=== PATIENT | female | born 1950 | race Caucasian/White ===

== ENCOUNTER 2025-09-16 08:25 | Outpatient (OUT) | payer MEDICARE, OTHER, SELFPAY ==
--- OUTSIDE RECORDS SUMMARY | 2014-10-12 09:45 | XMS_ITS | Continuity of Care Document ---
Author Organization [facility] Address [address] [place] [address] Phone Care Team Providers Care Experimental Welder Name Role Phone Rip Liriano Unavailable Unavailable Procedures Procedure Date ZOSTER VACC, SC OFFICE/OUTPATIENT VISIT, EST IMMUNIZATION ADMIN ZOSTER VACC, [place] HEP A/HEP B VACC, ADULT IM OFFICE/OUTPATIENT VISIT, EST OFFICE/OUTPATIENT VISIT, EST HEP A/HEP B VACC, ADULT IM OFFICE/OUTPATIENT VISIT, EST HEP A/HEP B VACC, ADULT IM OFFICE/OUTPATIENT VISIT, EST TDAP VACCINE >7 IM HEP A/HEP B VACC, ADULT IM Advance Directives Directive Yes / No Effective Date File Name Resuscitation Not Answered N/A N/A Life Support Not Answered N/A N/A Intubation Not Answered N/A N/A Antibiotics Not Answered N/A N/A IV Fluid Support Not Answered N/A N/A Tube Feed Not Answered N/A N/A Other Directive N/A N/A WARNING:The information contained in this section is historical and is provided for information only and does not constitute a legal document or any assurance that the information is still accurate. Please verify the information with the sy of the legal document before using it for clinical purposes. Encounters Encounter Description Practice Location Reason(s) For Visit Diagnoses Date Provider Providers Copied on Encounter OFFICE/OUTPAT IENT VISIT, EST [facility], [address] [place] [address], [id number], [place] tel:[phone] [facility] Need for prophylactic vaccination and inoculation, other viral diseases 4 Viscmelania Momin. [address], [place], [id number] , [place]. tel: [phone] OFFICE/OUTPAT IENT VISIT, [facility], [address], [place], [id number], [place] tel:[phone] [facility] No Information 1 Viscmelania Momin. [address], [place], [id number] , [place]. tel:[phone] OFFICE/OUTPAT IENT VISIT, [facility], [address], [place], [id number], [place] tel:[phone] [facility] No Information 1 Visci DO Erwin. [address], [place], [id number] , [place]. tel:[phone] OFFICE/OUTPAT IENT VISIT, [facility], [address], [place], [id number], [place] tel:[phone] [facility] No Information 1 Malissa Momin. [address], [place], [id number] , [place]. tel:[phone] Family History Family Member Type Diagnosis Age At Onset No Information Immunizations Vaccine Date Status Comments Zoster administered Note: VIS given . ; Source: New Immunization Record Twinrix administered Source: New Imm unization Record Payers Payer name Insurance type Covered libertarian ID Rosaura arias(s) [facility] [id number] Social History Type Description Quantity Date Captured Comments Alcohol Use Details Unknown Caffeine Use Details Unknown Tobacco Use Status No Information Smoking Status No Information Sex Female Chief Complaint And Reason For Visit No Information Reason For Referral Reason For Referral No Information History Of Present Illness Encounter Date Complaint History Of Prese nt Illness No Information Functional Status Date Functional Assessmen t No Information Instructions Date Instruction Additional Infor mation No Information Assessments Type Assessment Date No Information Patient Care Teams Name Effective Dates (start - stop) Status Members No Information
--- OUTSIDE RECORDS SUMMARY | 2025-09-14 20:02 | XMS_ITS | Continuity of Care Document ---
Author Organization [facility] Address [address] [place] [address] Phone Care Team Providers Care Learning Developer Name Role Phone Selwyn Johnson DO Primary Care Provider Marciano Eldridge MD Attending Provider Care Teams Patient Care Team Team Status: Active Member Role/Relationship Status Dates Selwyn Johnson DO Primary Care Provider Active Visit Care Team Team Status: Inactive Member Role/Relationship Status Dates Selwyn Johnson DO Primary Care Provider Active S tart: June 22, 2025 End: June 22Sabrina Calhoun ProviderActiveStart: June 22, 2025 End: June 22, 2025 Visit Care Team Team Status: Inactive Member Role/Relationship Status Dates Selwyn Johnson DO Primary Care Provider Active S tart: July 18, 2025 End: July 18Sabrina Calhoun ProviderActiveStart: July 18, 2025 End: July 18, 2025 Visit Care Team Team Status: Active Member Role/Relationship Status Dates Selwyn Johnson DO Primary Care Provider Active S tart: August 10, 2025 Sabrina Forde ProviderActiveStart: August 10, 2025 Visit Care Team Team Status: Inactive Member Role/Relationship Status Dates Selwyn Johnson DO Primary Care Provider Active S tart: August 29, 2025 End: August 29Sabrina Calhoun ProviderActiveStart: August 29, 2025 End: August 29, 2025 Patient Care Team Team Status: Inactive Member Role/Relationship Status Dates Selwyn Johnson DO Primary Care Provider Active S tart: September 14, 2025 End: September 14, 2025ThgInacio Calhounending ProviderActiveStart: September 14, 2025 End: September 14, 2025 Chief Complaint and Reason for Visit Chief Complaint Admit Date M47.816 M54.16 June 22, 2025 11:5 4am MRI RESULTS [facility] July 18, 2025 9: 26am F/U LUMBAR EPIDURAL August 29, 2025 9: 00am RIGHT INTRA-ARTICULAR HIP JOINT INJECT ION /VW September 14, 2025 11:49am Reason for Visit Admit Date Arthritis, lumbar spine July 18 9:26am Osteoarthritis of spine with radiculopat hy, lumbar region July 18, 2025 9:26am Other chronic pain July 18, 2025 9: 26am Arthritis, lumbar spine August 29 9:00am Hip pain, right August 29, 2025 9: 00am Osteoarthritis of spine with radiculopat hy, lumbar region August 29, 2025 9:00am Other chronic pain August 29, 2025 9: 00am Allergies, Adverse Reactions, Alerts Allergen Type Severity Reaction Last Updated Verified Status codeine Allergy Unknown Vomiting August 29, 9:33am Yes Active seasonal Allergy Moderate Watery Eyes, sneezing Mar 2023 11:07am No Active narcotic Allergy Unknown Vomiting May 11 8:07am No Active Social History Smoking Status Status Start Date End Date Date of Observa tion Never smoked tobacco (finding) February 18, 2024 11:15am Observation Status Observation Response Date of Response Legal Sex Female (finding) [facility] Family History Relationship Condition Age at Onset Recorded Date/T shayla father Parkinson's disease Unknown motherCardiovascular diseaseUnknownDiabetes mellitusUnknownfatherDeceasedUnknown HypertensionUnknownfatherHypertensionUnknowngrandparentDeceasedUnknown grandparentDeceasedUnknowngrandparentDeceasedUnknowngrandparentDeceasedUnknown motherHeart diseaseUnknownHypertensionUnknownDeceasedUnknownDiabetes mellitus Unknown Problems Active Problems Problem Diagnosis/Recorded Date Onset Date Status C omments Arthritis, lumbar spine Radha 2024 11:11am Unknown Active Popping of left temporomandibular joint on opening of jawFebruary 2024 12:16pmUnknownActiveHx of partial nephrectomyMarch 2023 11:34amUnknown Activeleft partial nephrectomy 02/06/2023Screen for colon cancerSeptember 2019 7:51amUnknownActiveMorbid (severe) obesity due to excess caloriesJune 2024 12:04pmUnknownActiveOther shelter (current) drug therapyMarch 2023 11:23amUnknownActiveGreater trochanteric bursitis of right hipJuly 2023 9:51amUnknownActiveLumbar radiculopathyJuly 2024 11:14amUnknownActiveLow back painJuly 2024 10:56amUnknownActiveAcute sinusitisFebruary 2024 12:18pmUnknownActivePolyarthralgiaMarch 2023 11:23amUnknownActive DiverticulosisDecember 2020 8:08amUnknownActiveHistory of total left knee replacementJune 2024 3:14pmUnknownActiveEdemaJune 2024 12:06pmUnknown ActiveOsteoarthritis of spine with radiculopathy, lumbar regionAugust 2024 9:51amUnknownActiveHyperglycemiaMarch 2023 11:23amUnknownActive HyperlipidemiaAugust 2021 12:09pmUnknownActiveHistory of kidney cancerJune 2024 8:48amUnknownActiveTick biteJune 2024 12:13pmUnknownActiveOther chronic painJuly 2024 11:14amUnknownActiveWeight gainFebruary 2024 12:20pmUnknownActiveWeight lossMarch 2023 11:23amUnknownActiveHip pain, rightJuly 2023 1:42pmUnknownActiveGERD (gastroesophageal reflux disease) August 08, 2020 7:51amUnknownActiveAllergic rhinitisSeptember 2023 10:14amUnknownActiveHypertensionSeptember 2019 7:51amUnknownActive Diverticulitis of colonJune 2020 9:11amUnknownActiveInactive/Resolved Problems Problem Diagnosis/Recorded Date Onset Date Status C omments Antibiotic reaction April 29, 2025 12:13pm Unknown Reso lved Medications Medication Status Dose Units Route Directions Qty Days Refills S tart Date Stop Date End Date Reason(s) Instructions Adherence Amoxicillin-Pot Clavulanate 875-125 mg tablet Discontinued 1 TAB PO Twice daily 20 10 0 March 01, 2024 12:00am March 01, 2024 4:39pmwith foodAmoxicillin-Pot Clavulanate 875-125 mg tablet Jzridiupvxbm6FZPQJTfcpl tmaqc79042Vuihb 2023 4:38pmMay 2023 1:29pm with foodOmeprazole 20 mg capsule,delayed release(DR/EC)Spefrkpjbxrg02NVPSDjtqq 14203Hxvuw 2023 3:52pmJune 2024 11:12amFreeTextSi capsule 30 minutes before morning meal Orally Once a day; Note: Source Status: Taking; Provider: Jeevan Radford MDicyclomine 20 mg aerxywTfzmruowtuoa59WZFNNgub times fkyln403126Fiqz 3rd, 2024 12:00amNovember 2023 10:30amDoxycycline Hyclate 100 mg ghypktgOumznyaskboj287UBLKUcydx uqksp91101WscApril 11, 2025 12:00amMay 2024 9:58amDoxycycline Hyclate 100 mg rrickbuJuhwygxctizc266SKEEXsqmd zzqhz38075 April 11, 2025 9:58amJune 2024 11:52amMultivitamin IdzizgWxpixx3GHMOFZkrrs August 08, 2020 12:00amUnknownAtorvastatin 10 mg XjdskbEwqtcoandhej25MHHE DailySeptember 2019 12:00amMarch , 2024 11:08amMetoprolol Succinate 100 mg Tablet Extended Release 24 GsJxasaozuwgid239WHRIEeraz dailypt2019 12:2023 3:08pmAmlodipine 10 mg KbtxleOsgywo05BXBJ DailyAugust 08, 2020 12:00amUnknownIndapamide 1.25 mg TabletDiscontinued 1.25MGPOEvery morningAugust 08, 2020 12:[facility]2023 3:07pmRamipril 10 mg WyrsjawSvedfu84PDIWOlkzp dailypt2019 12:00amUnknownCoenzyme Q10 (Coq-10) 100 mg MdjojpfVvuudrgsdgvv004TBOSQuzyuAffbqlnro 15th, 2020 12:00am July 01, 2022 11:38amAmoxicillin-Pot Clavulanate (Augmentin) 875-125 mg ubfvvjSebezanjjflo7QQRHKScetb zzrhi828Lvkxjnki 13th, 2021 1:2021 4:14pmOndansetron Hcl (Zofran) 4 mg ojikgoMztdzorkrxio1OBJTegkdw 6 to 8 hours as needed for nausea and hwumihst485Lnhcdhlc 13th, 2021 1:2021 4:13pmOmeprazole 40 mg Capsule,Delayed Release(Dr/Ec)Gfypxqwflitx13VS PODailyJun 2020 12:[facility] 2023 3:13pmMetronidazole (Flagyl) 500 mg XtgxkhExtzpaiuondi421BKUUZsswg times xwkdr681FckgMay 22, 2021 12:2021 4:14pmCiprofloxacin Hcl 500 mg ClegpgDuymbmkyqour752QQCALpbss daily20 2020 12:2021 4:14pmAdminister dose at least 2 hrs before/6 hrs after dairy products, calcium, zinc, and/or iron-containing productsCholecalciferol (Vitamin D3) (Vitamin D3) 25 mcg (1,000 unit) Tablet Lmsietppgfaa00ZMUZD7 times per weekAupresbyterian medical center-[facility] 2021 12:00amJun2024 11:55amAcetaminophen (Tylenol Arthritis) 650 mg Tablet Extended Release Wfozoormbwhs5780KKRFLmxcg as needed for PainAugust 2021 12:00amMarch 2023 11:08amCholecalciferol (Vitamin D3) (Vitamin D3) 25 mcg (1,000 unit) tablet Alxpqc79QPHAFQyndfQsmh 6th, 2025 11:52amUnknownculturelleDiscontinuedPOMay 2023 12:00amJun2024 11:52amHyoscyamine Sulfate 0.125 mg tablet,disintegratingDiscontinued0.125MGPOFour times daily as needed for ryafdufww838545Cxq 24th, 2024 12:00amJun2023 10:18amDicyclomine 20 mg ekzqsvGljnczdsxgpm17JHJCCluw times daily as neededOctober 11, 2024 10:28am January 04, 2025 12:11pmMethylprednisolone (Medrol (Bryan)) 4 mg tablets,dose fqrsJetzeqfffqqd4MZWGvr jguycrkg54FvyrannSeptember 07, 2024 12:00amNovember 2023 10:29amPrednisone 20 mg izevwkJaghuyblkpel0PG.with food or zpnd6228Yntfyxou2024 1:002024 9:07amtake 3 tablets a day x3 days, 2 tabs a day x3 days and then 1 tab a day x3 days orally WITH FOOD ORMILK;Cefdinir 300 mg mhxgiifEvdjuezrjuic2VMHycha59017Lnscorhp 11th, 2025 1:002024 9:07am take 2 (300 MG) capsules orally daily;Rosuvastatin 5 mg cemkvbHjvcdn1SLXGTepcn April 29, 2025 12:00amUnknownIndapamide 1.25 mg tabletDiscontinuedMGPOMarch 2023 12:002024 11:55amFreeTextSi-2 tablets in the morning Orally Once a day; Note: Source Status: Taking; Provider: Syd Rogers Metoprolol Succinate 100 mg tablet extended release 24 ruRuelvjpmsvfo1KPKMHJitaq dailyPremier Health 2023 12:00amNovember 2023 10:30amFreeTextSi tablet Oral Twice a day; Note: Source Status: Taking; Provider: Shayan Evangelista II ( )Metoprolol Succinate 50 mg tablet extended release 24 hr Trkvyhkwbckg82BYKALnkcx dailyPremier Health 2023 12:00amNovemb2023 10:29am FreeTextSi tablet Orally bid; Note: Source Status: Taking; Provider: Shayan Evangelista II ( )Omeprazole 20 mg capsule,delayed release(DR/EC) Bckcyyeqtfte5VNEXWHukmnDwkkp 2023 12:00amApril 2023 3:53pm FreeTextSi capsule 30 minutes before morning meal Orally Once a day; Note: Source Status: Taking; Provider: Jeevan Radford MAcetaminophen 500 mg tablet Kforvg139NHXRZpjfi 8 hours as neededPremier Health 2023 12:00amFreeTextSi tablets for pain Orally every 8 hrs; Note: Source Status: Takingmed to bed upon discharge DOS: 07/15/22; Refills: 0; Qty: 180 Tablet; Provider: Shayan Headleyroxychloroquine (Plaquenil) 200 mg sgtykgPzmtih030ICSQYzgyv February 18, 2024 12:00amUnknownMetoprolol Succinate 100 mg tablet extended release 24 dbVjuvgr093GQSZSsnxq dailyUofl [facility] 2023 10:29amFreeTextSi tablet Oral Twice a day; Note: Source Status: Taking; Provider: Shayan Evangelista II ( )UnknownIndapamide 1.25 mg tabletActive1.25MGPO.COMPLEXJune 2024 11:53am1.25 mg orally 1-2 tablets in the morning Orally Once a day; UnknownOmeprazole 20 mg capsule,delayed release(DR/EC)Sckhil67LRKBOvjye41639Ijqj 2024 11:11amFreeTextSi capsule 30 minutes before morning meal Orally Once a day; Note: Source Status: Taking; Provider: Jeevan Dean Immunizations Immunization Event Date Not Given Reason Dose Number Bed Laster Lot Number Reason(s) Given Vaccine Information Statement (VIS) Detail Administration Location COVID-19 mRNA, Comirnaty (Pfizer) January 24 COVID-19 mRNA, Comirnaty (Pfizer)February 14OVID-19 mRNA, Comirnaty (Upmann's)September 15OVID-19 mRNA, Comirnaty (Pfizer)April 04OVID- Comirnaty (Upmann's) Tri-Sucrose +April 04, 2022Fluzone TIV High-Dose 65YR+ August 28, 2018Fluzone TIV High-Dose 65YR+August 24, 2024Fluzone QIV High- Dose 65YR+August 22, 2020Fluzone QIV High-Dose 65YR+August 28, 2021 Fluzone QIV High-Dose 65YR+October 27, 2022Influenza vaccine, quadrivalent, adjuvantedSeptember neumococcal Conjugate Vaccine, 13 valentOctober 2016Pneumococcal Polysacc. Vaccine, 23 valentOctober 2017RSV, preF3, adj, pfOctober 2022Zoster Vaccine Recombinant, AdjuvantedAugust 2022 Zoster Vaccine Recombinant, AdjuvantedDecember 2022Tetanus, Diphtheria, Pertussis (Tdap)December 06, 2010Trivalent Influenza VaccineOctober 2017 Trivalent Influenza VaccineDecember 2021Hepatitis A & B Vaccine/PFJanuary 2010Hepatitis A & B Vaccine/PFFebruary 2010Hepatitis A & B Vaccine/PFJuly 2010Shingles (Zoster)October 12, 2014 Medical Equipment Device Date Implanted Device Details Orthopaedic cement, non-medicated July 15, 2 022 HILDA: [id number] Issuing Agency: [facility] Device Id: [id number] Expiration Date: 2024-08-23 Lot Number: [id number] cement, non-medicatedAugust 2021UDI: ()[id number] Issuing Agency: [facility] Device Id: [id number] Expiration Date: 2024-08-23 Lot Number: [id number] knee femur prosthesisAugust 2021UDI: ()[id number] Issuing Agency: [facility] Device Id: [id number] Expiration Date: 2032-02-11 Lot Number: [id number] insertAugust 2021UDI: ()[id number] Issuing Agency: [facility] Device Id: [id number] Expiration Date: 2027-09-23 Lot Number: [id number] patella prosthesisAugust 2021UDI: ()[id number] Issuing Agency: [facility] Device Id: [id number] Expiration Date: 2027-06-10 Lot Number: [id number] stemAugust 2021UDI: ()[id number] Issuing Agency: [facility] Device Id: [id number] Expiration Date: 2032-05-01 Lot Number: [id number] knee tibia prosthesis, metallicAugust 2021 HILDA: ()[id number] Issuing Agency: [facility] Device Id: [id number] Expiration Date: 2032-03-02 Lot Number: [id number] Procedures Procedure Date Performed Status MR lumbar spine wo con June 22, 2025 11:56am c ompleted Relevant Diagnostic Tests and/or Laboratory Data Diagnostic Imaging Reports Author Salo Brush [facility] HospitalAuthoredJuly 2024 3:02pmReportDictated Date/TimeDictated ByStatusRadiology ReportJuly 2024 3:02pmZhang CrowderKettering [facility] [place] [address] [place] [address] MRI Report Signed Patient: Beatrice Yung MR#: [id number] : 1950 Acct:[id number] Age/Sex: 74 / F ADM Date: 5 [facility] CLI Attending Dr: Marciano Eldridge MD Copies to: Marciano Eldridge MD~ Ordering Provider: Marciano Eldridge MD Date of Service: 06/22/25 MR/MR lumbar spine wo con: M47.816 - Spondylosis without myelopathy or radiculopathy... MRI lumbar spine performed without contrast INDICATION: Lumbar spine pain years radiates into the right hip/groin spondylosis without myelopathy or radiculopathy COMPARISON: X-rays lumbar spine 06/06/2025 FINDINGS: Mild dextrocurvature. There is 4 mm anterolisthesis of 4 on L5. Otherwise lumbar vertebral heights, alignment is unremarkable. There are degenerative endplate changes notably L5-S1 and less so L4-5. Intervertebral space space narrowing greatest at L5-S1, appearing mild to moderate and mild L4-5. Facet arthropathy greatest L4-5 and less so L5-S1. Conus medullaris terminates normally mid L1. T11-12: Right foraminal zone nerve root sheath diverticulum. Otherwise no significant disease central canal or neural foramen identified. T12-L1: Minor desiccation. Facet arthropathy. Canal neural foraminal pain. L1-2: Minimal right foraminal zone bulge with facet arthropathy. No significant canal neural foraminal narrowing identified. L2-3: Minimal endplate osteophytosis. No focal protrusion. Facet arthropathy. Minimal foraminal narrowing. Canal is patent. L3-4: Minimal broad-based bulge with endplate osteophytosis. Minimal foraminal encroachment. Tcve-bl-ouieslqf facet arthropathy. Central canal is patent. L4-5: Circumferential disc bulge with uncovering the posterior disc. There is a superimposed right foraminal and extraforaminal zone protrusion. Advanced facet arthropathy. Moderate right neural foraminal narrowing and icaq-ct-fehlttkl left neural foraminal narrowing identified. There is moderate severe central canal stenosis. L5-S1: Circumferential bulge with moderate right moderate severe left-sided facet arthropathy. Mild right neural foraminal narrowing. There is moderate left neural foraminal narrowing. There is crowding left subarticular zone with minimal mass effect on the traversing left S1 nerve roots. Otherwise canal is patent. MR/MR lumbar spine wo con IMPRESSION: Overall moderate degenerative changes lower lumbar spine L4-S1. No high-grade canal or neural foraminal narrowing identified. Moderate severe central stenosis at L4-5 noted. Impression dictated by: Salo Brush M.D. 06/22/2025 3:14 PM Dictation Location: [facility]-- Transcribed By: [facility] 06/22/25 1514 Dictated By: Salo Brush MD 06/22/25 1502 Signed By: <Electronically signed by Salo Brush MD in OV> 06/22/25 1514 Advance Directives Advance Directive Response Recorded Date/ Time Advance Directives No July 24, 2017 7:23am Insurance Providers Guarantor Beatrice Yung Address [address] [facility] [address] Info.Home Phone: Coverage Status Update:2025 Payer Group Member ID Coverage Type Subscriber Relationship to Subscriber Effective Date Expiration Date MMO [id number] K [place] Id: [id number] [address] [facility] [address] Home Phone: Email: [email or web address] General Hospitalcare Id: Irena [id number] K [place] Id: [id number] [address] [facility] [address] Home Phone: Email: [email or web address] Encounters Encounter Location(s) Arrival/Admit Date Discharge/Departure Date Discharge/Departure Disposition Provider(s) Departed Clinical -[facility] [address] Closed June 22, 2025 11:54am June 22, 2025 11:55am Discharged to home care or self care (routine discharge) Kyler Forde MD Departed Physician/ Provider Office Visit -[facility] July 18, 2025 9:26am July 18, 2025 9:52am Discharged to home care or self care (routine discharge) Kyler Forde MD Non-patient / Non-visit -[facility] August 10, 2025 12:30pm Kyler Forde MDDeparted Physician/Provider [facility] 9:00amOctober 2024 9:54amDischarged to home care or self care (routine discharge)Kyler Forde MDDeparted Physician/Provider [facility] 11:49amOctober 2024 11:59pmDischarged to home care or self care (routine discharge)Kyler Forde MD Recent Diagnosis Onset Date Admit Date Arthritis, lumbar spine Unknown June 252024 9:26am Osteoarthritis of spine with radiculopathy, lumbar region Unknown July 18, 2025 9:26am Other chronic pain Unknown July 18, 2025 9:26am Arthritis, lumbar spine Unknown August 29, 2025 9:00am Hip pain, right Unknown August 29 9:00am Osteoarthritis of spine with radiculopathy, lumbar region Unknown August 29, 2025 9:00am Other chronic pain Unknown August 29, 2025 9:00am Assessments Diagnosis Onset Date Resolution Status Admit Date Arthritis, lumbar spine acuteAugust 2024 9:26amOsteoarthritis of spine with radiculopathy, lumbar regionacuteAugust 2024 9:26amOther chronic painacuteAugust 2024 9:26amArthritis, lumbar spineacuteOctober 2024 9:00amHip pain, rightacute August 29, 2025 9:00amOsteoarthritis of spine with radiculopathy, lumbar regionacuteOctober 2024 9:00amOther chronic painacuteOctober 2024 9:00am Plan of Treatment [facility] 9:52amShould the patients lumbar pain persist following the epidural, we can consider the facet joints as a contributing factor of her pain. She was provided with educational literature for further consideration. Patients primary complaint today is low lumbar pain radiating into the lateral aspect of her bilateral lower extremities. Recent MRI results show evidence of multilevel degenerative changes and moderate spinal stenosis at L4-5, possibly contributing to her symptoms. We discussed a referral to neurosurgery vs conservative treatment; patient would like to proceed conservatively. She is a reasonable candidate for a lumbar epidural steroid injection which we will proceed with. Risks and benefits of procedure explained to patient; patient verbalizes understanding. Anatomy of spine discussed in detail with patient in regards to patients condition. Above note written by Sebastián Corrales CMA, [employer]. Edited and approved by Dr. Marciano Eldridge MD.? Author Marciano Eldridge [facility] HospitalAuthoredOctober 2024 10:09amPatient notes considerable improvement in their symptoms following a recent lumbar epidural steroid injection. We will continue to monitor and proceed with repeat treatment to the area as needed. She was advised of the importance of activity modification and limitations. We will follow up with the patient in three months, sooner if needed. Anatomy of spine discussed in detail with patient in regards to patients condition. Overall, patient believes their pain is reasonably well controlled and she is in agreement with our treatment plan. Patient does complain of anterior hip and groin pain. We did discuss a repeat hip joint injection as this helped considerably in the past. Patient would like to hold off at this time. Patient can call office if she would like to proceed with a repeat hip injection. Above note written by GHULAM Spears, [employer]. Edited and approved by Dr. Marciano Eldridge MD.? Future Tests Future scheduled test information is unavailable Pending Tests Pending diagnostic test information is unavailable Future Visits Future appointment information is unavailable Future Procedures Future procedure information is unavailable Future Medications Future medication information is unavailable Patient Instructions Patient instructions are unavailable
--- OUTSIDE RECORDS SUMMARY | 2025-09-16 08:33 | XMS_ITS | Clinical Summary ---
Author Organization [facility] Address [address] [place] [address] Care Team Providers Care Speed Operator Name Role Phone Selwyn Johnson DO Primary Care Provider [phone] Luis Alfredo Jones MD Unavailable [phone] Allergies Active AllergyReactionsCriticalityNoted DateCommentsCodeineGI Upset,Unknown 02/16/2004Sulfa (Sulfonamide Antibiotics)09/05/2004 muscle and joint aches Medications MedicationSigDispense QuantityRefillsLast FilledStart DateEnd DateStatus MULTIVITAMIN TABLET Take one(1) tablet daily.Active LOZOL 1.25MG TABLET Indications:Essential hypertension, benignqam 30 111Active metoprolol succinate ER (TOPROL XL) 100 mg Take 150 mg by mouth twice daily.Active amLODIPine 10 mg ORAL tablet Take 10 mg by mouth once daily.Active ramipril (ALTACE) 10 mg capsule Take 10 mg by mouth twice daily.Active omeprazole (PRILOSEC) 40 mg capsule Take by mouth once daily.Active PAIN RELIEVER EXTRA STRENGTH 500 mg tablet TAKE TWO TABLETS BY MOUTH EVERY 8 HOURS FOR PAIN07/09/2022ctive atorvastatin (LIPITOR) 10 mg tablet Take by mouth.12/17/2021ctive oxyCODONE IR (ROXICODONE) 5 mg immediate release tablet Indications:Left renal massTake 1 tablet by mouth every 8 hours as needed for pain. 8 tablet 02/05/2023 12:30 PM EDT02/05/2023ctive ondansetron orally disintegrating (ZOFRAN ODT) 4 mg disintegrating tablet Take 1 tablet by mouth every 8 hours as needed. 20 tablet 02/05/2023 12:30 PM EDT02/05/2023ctive hydrOXYchloroQUINE (PLAQUENIL) 200 mg tablet Take 200 mg by mouth.10/02/2023ctive Active Problems ProblemNoted DateDiagnosed DateSevere ybyywyz9401/26/20240318Nfatdpyplzwmji84/29/2024 Obesity, Class II, BMI 35-39.9002/04/2023Obesity (BMI 30-39.9)01/28/2023 Assessment & Plan (01/28/2023 7:38 AM EST): Body mass index is 38.06 kg/m??. GERD (gastroesophageal reflux disease)01/27/2023 Assessment & Plan (01/27/2023 1:33 PM EST): Pepe, on rx. Fatty liver01/27/2023 Assessment & Plan (01/27/2023 1:33 PM EST): Follows with gastroenterology. CMP pending. Recent URI01/27/2023 Assessment & Plan (01/27/2023 1:35 PM EST): Had recent URI, completed 10 day course of Augmentin on 01/25. Had symptoms of cough and nasal congestion, no fevers. States symptoms have improved, has occasional cough from PND. Lungs CTA on exam, SpO2 97% on room air. Lung CT without focal consolidations. Left renal mass12/03/2022Microscopic buuweoghg51/10/2023lantar fasciitis 08/19/2012Morton's prbcbew1708/19/2012Pain in limb08/19/2012Essential hypertension, krzrpf9810/29/2004 Assessment & Plan (01/27/2023 1:03 PM EST): Stable, on rx. BP 146/75 in office today. Family History Medical HistoryRelationCommentsDiabetesFatherCoronary Artery DiseaseMother DiabetesMotherAnesthesia ProblemsNo Family HistoryRelationStatusCommentsFather Mother Social History Tobacco UseTypesPacks/DayYears UsedDateSmoking Tobacco: NeverPassive Smoke Exposure: NeverSmokeless Tobacco: Never Tobacco Cessation:Counseling Given: Not Answered Alcohol UseStandard Drinks/WeekCommentsNot Currently0 (1 standard drink = 0.6 oz pure alcohol)rare- once every couple of monthsArea Deprivation IndexAnswerDate RecordedNational Score (1-100), lower number is lower aksc70854State Score (1-10), lower number is lower ergv4514Data from: https://www.neighborhoodatlas.medicine.[facility]/. Last address used for [address]CommentsNoSex and Gender Information ValueDate RecordedSex Assigned at BirthNot on fileLegal IlnUwxgug74/02/2012 8:50 AM ESTGender IdentityNot on fileSexual OrientationNot on file Last Filed Vital Signs Vital SignReadingTime TakenCommentsBlood Brtkwzmv164/8503 11:29 AM EST Siobl3347 11:29 AM FCWVlyftgnokff53.8 ??C (98.2 ??F)02/05/2023 11:10 AM EDTRespiratory Wndx368502/05/2023 9:11 AM EDTOxygen Xnctkjifpv21%02/05/2023 11:10 AM EDTInhaled Oxygen Concentration--Mxufql101 kg (236 lb)02/14/2023 9:02 AM EDT Ovsemz534.2 cm (5' 7 )02/14/2023 9:02 AM EDTBody Mass Index36.9602/14/2023 9:02 AM EDT Plan of Treatment DateTypeDepartmentCare Team (Latest Contact Info)Lmektpfgdwo52/19/2026 8:00 AM EDTResults Only [employer] [facility] Draw Station [address] [place] [address] (D) Renal cell carcinoma, unspecified laterality (HCC) [C64.9]05/12/2026 8:15 AM EDTAppointment General Radiology [address] [place], [place] [id number] XR CHEST 2V FRONTAL/FSB132 8:[address] Scan [address] [place] [address] CT ABD/PEL W IVCON05/12/2026 9:[address] Scan [address] [place], [place] [id number] CT ABD/PEL W IVCON05/17/2026 10:00 AM EDT[facility] [address] [address] Janny Landrum MD [facility] [place] [address] 1 year vv - RCC per cc chartHealth MaintenanceDue DateLast DoneCommentsAnnual PCP Team Chronic Disease Visit1969Anxiety Oqfbhkvub74/01/1969Depression Aojyljjzm78/01/1969Hepatitis C Yzykjhrzx06/01/1969CT Ldtpyqaiwttb57/01/1996 Cologuard (FIT-DNA)06/24/19961153Oatiilslmdj84/01/1996Colorectal Cancer Screening 1996Fecal Occult Blood06/24/19966798Zthrqtbkjyafm39/01/1996Medicare Annual Wellness Visit05/24/2016DTaP,Tdap,Td Vaccine (2 - Td or Tdap)12/06/2020 12/06/2010dvance Directive Xznwwabmxo81/01/2025Covid-19 Vaccine ( season)505/10/2022, 09/15/2021, 02/14/2021, Additional history exists Influenza Vaccine (#1)/11/2023, 08/21/2023, 10/27/2022, Additional history existsMammogram Rnmygtdsj35/07/784225/05/2024, 04/02/2024, 12/30/2022, Additional history existsDiabetes Nktivrvoe09/04/2025, 05/31/2024, 01/22/2024, Additional history existsLipid Ykqvlltvl55/06/2024 Pneumococcal Vaccine: 50+Bglleydsf39/05/2018, 09/08/2017Bone Density Screening Cxmwrsvlk98/16/2019RSV DvwjhjiOiszrilju35/23/2023Shingrix VaccineCompleted 11/14/2023, 07/22/2023, 10/12/2014 Medical Devices ImplantedTypeAreaManufacturerDevice IdentifierSwilson health Expiration DateModel / Serial / LotGraft Bn Grftn Dbm 1ml Ptty - [id number] Implanted:Qty: 1 on 05/15/2012 at [facility] / PuttyLeft: Bone - Foot MTF01/[id number] / [id number] / Nut-Mo-B-Kind Implant - [id number] Implanted:Qty: 1 on 05/15/2012 at [facility]: Bone - FootSTRYKER [id number] / / Description:variax xutovQyq-Ef-F-Kind Implant - [id number] Implanted:Qty: 1 on 05/15/2012 at [facility]: Bone - FootSTRYKER [id number] / / Description:3.5mm locking screw cxqmyiHom-No-U-Kind Implant - [id number] Implanted:Qty: 1 on 05/15/2012 at [facility]: Bone - FootSTRYKER [id number] / / Description:3.5mm locking screw kbzcoiRnb-Yt-Z-Kind Implant - [id number] Implanted:Qty: 1 on 05/15/2012 at [facility]: Bone - FootSTRYKER [id number] / / Description:3.5mm locking screw fazcpxGyh-Sf-D-Kind Implant - [id number] Implanted:Qty: 1 on 05/15/2012 at [facility]: Bone - FootSTRYKER [id number] / / Description:3.5mm locking screw sihhqrZfq-Sz-L-Kind Implant - [id number] Implanted:Qty: 1 on 05/15/2012 at [facility]: Bone - [facility] BONE [id number] / / ExplantedTypeAreaManufacturerDevice IdentifierSwilson health Expiration DateModel / Serial / RokZew-Hh-J-Kind Implant - [id number] [facility] Bone - FootLAZARO BONE [id number] / / Description:shahzad 1.0szg079al Procedures Procedure NamePriorityDate/TimeAssociated DiagnosisCommentsBASIC METABOLIC PANEL Pdxuuud9501/27/2025 8:41 AM EST Malignant neoplasm of left kidney excluding renal pelvis (HCC) from Last 3 Months or Most Recently Relevant to Health Maintenance Results * (ABNORMAL) BASIC METABOLIC PNL (01/27/2025 8:41 AM EST)ComponentValueRef Range Test MethodAnalysis TimePerformed AtPathologist KbnbflcfoIdexmgh821(H)74 - 99 mg/dL01/27/2025 9:12 AM ESTCANCER CENTER [facility] LABComment: The [place] Diabetes Association (ADA) provides guidance for cutoff values for fasting glucose andrandom glucose. The ADA defines fasting as no caloric intake for at least 8 hours. Fasting plasma glucose results between 100 to 125 mg/dL indicate increased risk for diabetes (prediabetes). Fasting plasma glucose results greater than or equal to 126 mg/dL meet the criteria for diagnosis of diabetes. In the absence of unequivocal hyperglycemia, results should be confirmed by repeat testing. In a patient with classic symptoms of hyperglycemia or hyperglycemic crisis, random plasma glucose results greater than or equal to 200 mg/dL meet the criteria for diagnosis of diabetes. Reference: Standards of Medical Care in Diabetes 2016, [place] Diabetes Association. Diabetes Care. 2016.39(Suppl 1). OPO613 - 21 mg/dL01/27/2025 9:12 AM ESTCANC[facility] LABCreatinine0.79 0.58 - 0.96 mg/dL01/27/2025 9:12 AM [address] AAZGcpztk300(H)136 - 144 mmol/L01/27/2025 9:12 AM [address] LABPotassium4.53.7 - 5.1 mmol/L01/27/2025 9:12 AM [address] KJLQmloxtgv55231 - 107 mmol/L 01/27/2025 9:12 AM [address] MTMGE93764 - 30 mmol/L01/27/2025 9:12 AM [address] LABAnion Oot990 - 15 mmol/L01/27/2025 9:12 AM [address] LABCalcium, Total9.88.5 - 10.2 mg/dL01/27/2025 9:12 AM ESTCANC[facility] LABEstimated Glomerular Filtration Rate79>=60 mL/min/1.73m 01/27/2025 9:12 AM ESTCANC[facility] LABComment:Estimated Glomerular Filtration Rate (eGFR) is calculated using the 2020 CKD-EPI creatinine equation. This equation utilizes serum creatinine, sex, and age as parameters. The creatinine assay has traceable calibration to isotope dilution-mass spectrometry. Refer to KDIGO guidelines for clinical interpretation. In patients with unstable renal function, e.g. those with acute kidney injury, the eGFRmay not accurately reflect actual GFR.Specimen (Source)Anatomical Location / LateralityCollection Method / VolumeCollection TimeReceived TimeBloodBLOOD SPECIMEN / UnknownVenipuncture / Iwrstqk1501/27/2025 8:41 AM EST01/27/2025 8:41 AM EST Narrative Authorizing ProviderResult TypeResult StatusBartolo Rios MDLABORATORYFinal Result Performing OrganizationAddressCity/State/ZIP CodePhone Number [facility] [address] [place] [address], from Last 3 Months or Most Recently Relevant to Health Maintenance Insurance Advance Directives TypeDate RecordedPatient RepresentativeExplanationAdvance Directive(s)02/03/2023 10:07 AM Care Teams Team MemberRelationshipSpecialtyStart DateEnd Date Selwyn Johnson DO [address] [place] [phone] PCP - General02/08/04 Luis Alfredo Jones MD [address] [phone] Cardiology01/27/23
--- OUTSIDE RECORDS SUMMARY | 2025-09-16 08:34 | XMS_ITS | Patient Health Record ---
Author Organization [facility] Address [facility] [place] [address] Care Team Providers Care Dining Room Coordinator Name Role Phone Benny Lane Unavailable [phone] Reason For Referral No Information Plan Of Treatment No Information Insurance Providers Payer Name Payer Address Payer Phone Subscriber Number Group Number Insured Name Patient Relationship to Insured Coverage Start Date Coverage End Date Medical [facility] [address] [place] [address] [id number] Beatrice Yung Self - patient is the insured Medical [facility] [address] [place] [id number] Yungouse - patient is the spouse of the insured
--- OUTSIDE RECORDS SUMMARY | 2025-09-16 08:34 | XMS_ITS | Clinical Summary ---
Author Organization [facility] Address [address] [place] [address] Phone Care Team Providers Care Records Section Supervisor Name Role Phone Selwyn Johnsno DO Primary Care Provider [phone] Allergies Active AllergyReactionsCriticalityNoted DateCommentsCodeineUnknown,Nausea Only 02/16/20042428BjhwalklfdkfXrvkklk47/14/2025Sulfa (Sulfonamide Antibiotics)Unknown 01/06/2024 Medications MedicationSigDispense QuantityRefillsLast FilledStart DateEnd DateStatus multivitamin tablet Take 1 tablet by mouth once daily.Active omeprazole OTC (PriLOSEC OTC) 20 mg EC tablet Take 1 tablet (20 mg) by mouth once daily in the morning. Take before meals. Do not crush, chew, orsplit.Active hydroxychloroquine (Plaquenil) 200 mg tablet Take 1 tablet (200 mg) by mouth once daily.4Active ramipril (Altace) 10 mg capsule Indications:Essential hypertension, benignTake 1 capsule (10 mg) by mouth every 12 hours. 180 capsule 5Active amLODIPine (Norvasc) 10 mg tablet Indications:Essential hypertension, benignTake 1 tablet (10 mg) by mouth once daily. 90 tablet 5Active indapamide (Lozol) 1.25 mg tablet Indications:Essential hypertension, benignTake 1 tablet (1.25 mg) by mouth once daily. 90 tablet 5Active metoprolol succinate XL (Toprol-XL) 100 mg 24 hr tablet Indications:Essential hypertension, benignTAKE 1 AND 1/2 TABLETS TWICE DAILY 270 tablet 5Active rosuvastatin (Crestor) 5 mg tablet Indications:Mixed hyperlipidemiaTake 1 tablet (5 mg) by mouth once daily. 90 tablet 506Active Active Problems ProblemNoted DateDiagnosed DateNever smoked iaijrih7306/06/2025Localized edema 06/06/2025MI 39.0-39.9,adult06/04/20242256Ucdfdstfjw02/13/2024Hyperlipidemia 01/06/2024White coat syndrome with diagnosis of exhjdcmsibkc25/13/2024Essential (primary) vfzevmkvmzbb32/06/2004 Overview (01/06/2024): Last Assessment & Plan: Stable, on rx. BP 146/75 in office today. Immunizations ImmunizationAdministration DatesNext DueFlu vaccine, quadrivalent, high-dose, preservative free, age 65y+ (FLUZONE)10/27/2022,08/28/2021,08/22/2020Flu vaccine, trivalent, preservative free, HIGH-DOSE, age 65y+ (Fluzone)08/24/2024, 08/22/2020,08/28/2018,08/25/2017Hep A / Hep B006/13/2011,01/17/2011,12/06/2010 Influenza, Seasonal, Quadrivalent, Cuthetnygx95/28/2023Influenza, seasonal, jqnomrbvcf04/04/2022,08/24/2019,08/28/2018Pfizer Argueta Cap YYII-EsO-008/12/2022 Pfizer Purple Cap PLGK-HjO-575/12/2022Pneumococcal conjugate vaccine, 13-valent (PREVNAR 13)09/08/2017Pneumococcal polysaccharide vaccine, 23-valent, age 2 years and older (PNEUMOVAX 23)08/28/2018RSV, 60 Years And Older (AREXVY) 09/15/2023Zoster vaccine, recombinant, adult (SHINGRIX)11/14/2023,07/22/2023 Zoster, live10/12/2014 Family History Medical HistoryRelationNameCommentsHypertensionFatherHeart failureMother HypertensionMotherRelationNameStatusCommentsFatherMother Social History Tobacco UseTypesPacks/DayYears UsedDateSmoking Tobacco: NeverSmokeless Tobacco: NeverAlcohol UseStandard Drinks/WeekCommentsYes0 (1 standard drink = 0.6 oz pure alcohol)rarelyCommentsUnknownSex and Gender InformationValueDate RecordedSex Assigned at BirthNot on fileLegal AsxDszsho71/25/2022 6:30 PM EST Gender IdentityNot on fileSexual OrientationNot on file Last Filed Vital Signs Vital SignReadingTime TakenCommentsBlood Mnoxbwaz545/8007 8:57 AM EDT Mikjb848906/06/2025 8:36 AM EDTTemperature--Respiratory Rate--Oxygen Saturation-- Inhaled Oxygen Concentration--Xjgbta426 kg (255 lb)06/06/2025 8:36 AM EDTHeight 170.2 cm (5' 7 )06/06/2025 8:36 AM EDTBody Mass Index39.9406/06/2025 8:36 AM EDT Plan of Treatment DateTypeDepartmentCare Team (Latest Contact Info)Ykwyonelnnb43/17/2026 8:40 AM EDTOffice Visit [facility] [address] [facility] [address] [place] [address] Luis Alfredo Jones MD [address] [facility] [address], [address] [place] [address] Health MaintenanceDue DateLast DoneCommentsCT Drruzvfjemwr1951Colonoscopy 1951olorectal Cancer Tpozipryt1951FIT-DNA (Cologuard)1951FIT 1951ipid Panel06/24/19513151Ovxtgjywnwhqk1951Yearly Adult Physical 1951Hepatitis C Diujvrvuc65/01/1969DTaP/Tdap/Td Vaccines (1 - Tdap) 1973MMR Vaccines (1 of 1 - Standard series)11/09/2014one Density Scan /Influenza Vaccine (#1)/11/2023, 08/21/2023, 10/27/2022, Additional history existsCOVID-19 Vaccine ( season) 505/10/2022, 04/04/20223364Txpyzlbdp73/07/202511/05/2024, 09/30/2024, 04/15/2024, Additional history existsHepatitis A GpbjponvGwwxpcevq94/21/2011, 01/17/2011, 12/06/2010Hepatitis B EygrmkjkKbloqjawh97/21/2011, 01/17/2011, 12/06/2010Pneumococcal AdlptjlMhvwqnlkz92/05/2018, 09/08/2017RSV High Risk: (Elderly (60+) or Population)Wkkxztmoq99/23/2023Zoster Vaccines Jfakviwzk79/22/2023, 07/22/2023, 10/12/2014HIB VaccinesAged OutNo longer eligible based on patient's age to complete this topicHPV VaccinesAged OutNo longer eligible based on patient's age to complete this topicIPV VaccinesAged OutNo longer eligible based on patient's age to complete this topicMeningococcal VaccineAged OutNo longer eligible based on patient's age to complete this topic Rotavirus VaccinesAged OutNo longer eligible based on patient's age to complete this topic Insurance [address] [place] [address] Care Teams Team MemberRelationshipSpecialtyStart DateEnd Date Selwyn Johnson DO [facility]03/14/22
--- OUTSIDE RECORDS SUMMARY | 2025-09-16 08:34 | XMS_ITS | Patient Health Record ---
Author Organization [facility] [employer] [facility] Address [address] [address], [place] [address] Care Team Providers Care Insurance Salesman Name Role Phone Doin Lockett Unavailable [phone] Allergies Allergen (clinical drug ingredient) Drug/Non Drug Allergy documented on EMR Reaction Allergy Type Onset Date Status Information temporarily unavailable opioids (uncoded) Unkn own Allergy ActiveInformation temporarily unavailableCodeinestomach upsetDrug AllergyActive Reason For Referral No Information Medications Medication SIG (Take, Route, Frequency, Duration) Notes Start Date End Date Status amLODIPine Besylate 10 MG Tablet Oral; Duration: 90 Days ActiveMetoprolol Succinate ER 100 MG Tablet Extended Release 24 HourOral; Duration: 90 DaysActiveIndapamide 1.25 MG TabletOral; Duration: 90 DaysActive Ramipril 10 MG CapsuleOral; Duration: 90 DaysActivePlaquenil 200 MG Tabletas directed OrallyActiveMultivitamin AdultActive Social History Section Notes: Patient is a nonsmoker. Social alcohol use. Exercise habits: Walks Every Morning With A Group Of Ladies Encounters Encounter Location Date Provider Diagnosis [facility] [address] [address], [place] [address] 06/06/2025 Dion Lockett Capsulitis of toe of right foot M77.51 and Hallux valgus of right foot M20.11 Assessments Encounter Date Diagnosis (ICD Code) Assessment Notes Treatment Notes Treatment Clinical Notes Section Notes 06/06/2025 Hallux valgus of right foot (ICD -10 - M20.11) Discussed potential future surgery as she does have left 1st MPJ fusion which she is happy with. Will continue nonsurgical care for now.06/06/2025apsulitis of toe of right foot (ICD-10 - M77.51) Chronic right second toe pain and bunion discomfort, present for years. Pain is variable in severity and affects both the top and bottom of the toe. Symptoms are not relieved by vmaz-dzn-nrbbvma medications. History of arthritis and current use of Plaquenil. Patient is frustrated by limited mobility and difficulty keeping up with grandchildren. No prior injections in this toe; hesitant about surgery. - Offered intra-articular injection to the right second toe for pain relief. - Discussed risks of repeated steroid injections, including potential ligament weakening. - Recommended supportive footwear and use of Crest pad or taping for additional support. Cross overtapping was also applied with 1/2 silk tape. 06/06/2025Other After consent was obtained the skin was prepped with alcohol. Ethyl chloride was used to alleviate pain from the injection then an injection consisting of 0.5 cc of celestone was injected into the 2nd MPJ via dorsal-medial approach. Patient tolerated the injection well and the site was dressed with a band-aide. Post-injection instructions were provided. Plan Of Treatment Next Appt Details Provider Name:Dion moreau, 09/16/2025 10:30:00 AM, [address] [facility] [address], [address], [place], [address], Insurance Providers Payer Name Payer Address Payer Phone Subscriber Number Group Number Insured Name Patient Relationship to Insured Coverage Start Date Coverage End Date Medicare [place] [address] [place] [address] [id number] Jimbo Yung - patient is the insuredMutual [place] Medicare [id number] [place], [place] [id number], SharonSelf - patient is the insured Medical (General) History Medical History History ICD Code Arthritis High Blood PressureSurgical History Surgery Date(Month/Year) Knee Replacement 2021 Kidney Cancer 2022 Left 1st metatarsal phalangeal joint fus ion
--- OUTSIDE RECORDS SUMMARY | 2025-09-16 08:35 | XMS_ITS | Clinical Summary ---
Author Organization [facility] Address [address] [place] [address] Care Team Providers Care Helper Teacher Name Role Phone Selwyn Johnson MD Primary Care Provider [phone] Allergies Active AllergyReactionsCriticalityNoted WzhmYpoabhagIupfhdgtzveAdbtlqa39/25/2024 CodeineGI intolerance,Nausea Only,Bxnkvlb5202/16/20040113GbeoqtefigbFqmmqnt83/25/2024 Sulfa XbqazmwbgfsOazdvan15/13/2004 muscle and joint aches Medications MedicationSigDispense QuantityRefillsLast FilledStart DateEnd DateStatus amLODIPine (Norvasc) 10 MG tablet 1 (one) time each day at the same timeActive amoxicillin (Amoxil) 500 MG capsule TAKE 4 CAPSULES BY MOUTH A SINGLE DOSE 1 HOUR BEFORE XBEJMCAQR26/04/2024 Active hydroxychloroquine (Plaquenil) 200 MG tablet Take 200 mg by mouth10/02/2023ctive indapamide (Lozol) 1.25 MG tablet Take 1.25 mg by mouth in the morning.01/16/2024ctive metoprolol succinate XL (Toprol-XL) 100 MG 24 hr tablet 1 (one) time each day at the same timeActive Multiple Vitamin (Multivitamin Adult) tablet OrallyActive nystatin-triamcinolone (Mycolog II) ointment 1 application if ceeqqg9812/17/2022ctive omeprazole (PriLOSEC) [address] capsule 12/18/2023ctive ramipril (Altace) 10 MG capsule 1 capsule every 12 (twelve) hoursActive rosuvastatin (Crestor) 5 MG tablet Take 5 mg by mouth in the morning.03/05/443433/05/2026Active Active Problems ProblemNoted DateDiagnosed DateAtrophic aaechbgdm10/25/2024Mixed incontinence 02/16/2024Status post bprtcwlapoqs06/25/8233Futakwdtkw20/25/2024Severe obesity 01/26/20245122Ousejiqafowexm64/29/7002Iqvlgdmutgptlf50/13/2024White coat syndrome with diagnosis of lqxhkbigoxxr11/13/2024Obesity, Class II, BMI 35-39.9002/04/2023 Obesity (BMI 30-39.9)01/28/2023 Overview (02/16/2024): Last Assessment & Plan: Body mass index is 38.06 kg/m??. Fatty liver01/27/2023 Overview (02/16/2024): Last Assessment & Plan: Follows with gastroenterology. CMP pending. GERD (gastroesophageal reflux disease)01/27/2023 Overview (02/16/2024): Last Assessment & Plan: Stable, on rx. Left renal mass12/03/2022Microscopic wadqiemwp63/10/2023Morton's neuroma 08/19/2012Pain in limb08/19/2012Plantar oiraoodhd51/26/2012Essential hypertension, kqepar5110/29/2004 Overview (02/16/2024): Last Assessment & Plan: Stable, on rx. BP 146/75 in office today. Last Assessment & Plan: Stable, on rx. BP 146/75 in office today. Resolved Problems ProblemNoted DateDiagnosed DateResolved DateRecent URI Overview (02/16/2024): Last Assessment & Plan: Had recent URI, completed 10 day course of Augmentin on 01/25. Had symptoms of cough and nasal congestion, no fevers. States symptoms have improved, has occasional cough from PND. Lungs CTA on exam, SpO2 97% on room air. Lung CT without focal consolidations. Immunizations ImmunizationAdministration DatesNext DueHep A / Hep B006/13/2011,01/17/2011, 12/06/2010Influenza, High Dose Seasonal, Preservative Free08/24/2024,08/28/2018, 08/25/2017Influenza, High-dose Seasonal, Quadrivalent, Preservative Free 10/27/2022,08/28/2021,08/22/2020Influenza, Seasonal, Quadrivalent, Adjuvanted 08/21/2023Influenza, seasonal, lakmdtbdza76/01/2019Pneumococcal Conjugate PCV 13 09/08/2017Pneumococcal Polysaccharide TQIA4083RSV, recombinant, protein subunit RSVpreF, adjuvant reconstitu, 120mcg/0.5mL, PF (Arexvy)09/15/2023Tdap 12/06/2010Zoster, Rjxkwxutdnh36/22/2023,07/22/2023Zoster, live10/12/2014 Family History Medical HistoryRelationNameCommentsDiabetesMotherHeart diseaseMotherRelationName StatusCommentsFatherDeceasedMotherDeceased Social History Tobacco UseTypesPacks/DayYears UsedDateSmoking Tobacco: NeverSmokeless Tobacco: Never Tobacco Cessation:Counseling Given: Not Answered Alcohol UseStandard Drinks/WeekCommentsYes0 (1 standard drink = 0.6 oz pure alcohol)Caffeine intake: noneAUDIT-CAnswerDate RecordedQ1: How often do you have a drink containing alcohol?Never05/10/2025Q2: How many drinks containing alcohol do you have on a typical day when you are drinking?Patient does not drink 05/10/2025Q3: How often do you have six or more drinks on one occasion?Never 05/10/2025PHQ-2AnswerDate RecordedPatient Health Questionnaire-2 Score0 06/17/2025CommentsNoSex and Gender InformationValueDate RecordedSex Assigned at QttrdLaazda12/23/2024 4:35 PM EDTLegal OfsNxvtip89/15/2023 7:10 PM EDTGender PfxekoqqEelzua40/23/2024 4:35 PM EDTSexual OrientationNot on file Last Filed Vital Signs Vital SignReadingTime TakenCommentsBlood Jqpikiay050/8805/10/2025 1:05 PM EDT Pulse--Temperature--Respiratory Rate--Oxygen Saturation--Inhaled Oxygen Concentration--Phtavn524 kg (255 lb)05/10/2025 1:05 PM JOOQyxuly370.4 cm (5' 5.5 )05/10/2025 1:05 PM EDTBody Mass Index41.7905/10/2025 1:05 PM EDT Plan of Treatment Health MaintenanceDue DateLast DoneCommentsCT Fakaezpxinty1950olonoscopy 1950olorectal Cancer Eckshseta1950FIT-DNA1950FIT1950 FOBT06/24/19518311Ubdxnagxyjbqr1950Influenza Vaccine (#1)/11/2023, 08/21/2023, 10/27/2022, Additional history lnhqjlAmjlffdbn18/14/202607/, 09/30/2024, 04/15/2024, Additional history existsPneumococcal Vaccine: 65+ Years Lvtbuwqrl47/05/2018, 09/08/2017 Procedures Procedure NamePriorityDate/TimeAssociated DiagnosisCommentsBI MAMMOGRAM SCREENING TOMOSYNTHESIS SJPSRCGTBGwfqzgh86/14/2025 6:07 PM EDT Breast cancer screening by mammogram from Last 3 Months or Most Recently Relevant to Health Maintenance Results * Bilateral screening mammogram with tomosynthesis (06/06/2025 6:07 PM EDT) Anatomical RegionLateralityModalityBreastBilateralMammographySpecimen (Source) Anatomical Location / LateralityCollection Method / VolumeCollection Time Received Time06/08/2025 9:57 AM EDT Impressions 06/08/2025 10:07 AM EDT Impression: No specific evidence of malignancy seen in either breast. BIRADS 2 - Benign Findings DENSITY: There are scattered areas of fibroglandular density. FOLLOW-UP: Routine Screening Mammogram ELECTRONICALLY SIGNED BY: Carlos Aviles M.D. Narrative 06/08/2025 10:07 AM EDT Examination: BI MAMMOGRAM SCREENING TOMOSYNTHESIS BILATERAL Clinical History: screening Technique: Screening digital mammography study of both breasts was performed with 2-D and 3-D tomosynthesis imaging. Study was compared to the screening mammogram study of the breasts dated 04/02/2024, diagnostic mammogram study of the left breast dated 04/15/2024, ultrasound study of the left breastdated 04/15/2024 and diagnostic mammogram study of the left breast dated 09/30/2024. Findings: There is no evidence of interval dominant spiculated mass, grouped microcalcifications, or skin thickening which would be suggestive of malignancy. ?? A few benign-appearing calcifications are seen bilaterally. Axillary lymph nodes including partially visualized lymph nodes are noted bilaterally which appear grossly unremarkable. Procedure Note Carlos Aviles MD - 06/08/2025 Examination: BI MAMMOGRAM SCREENING TOMOSYNTHESIS BILATERAL Clinical History: screening Technique: Screening digital mammography study of both breasts wasperformed with 2-D and 3-D tomosynthesis imaging. Study was compared tothe screening mammogram study of the breasts dated 04/02/2024, diagnosticmammogram study of the left breast dated 04/15/2024, ultrasound study ofthe left breast dated 04/15/2024 and diagnostic mammogram study of the leftbreast dated 09/30/2024. Findings: There is no evidence of interval dominant spiculated mass,grouped microcalcifications, or skin thickening which would be suggestiveof malignancy. A few benign-appearing calcifications are seen bilaterally. Axillary lymphnodes including partially visualized lymph nodes are noted bilaterallywhich appear grossly unremarkable. IMPRESSION: Impression: No specific evidence of malignancy seen in either breast. BIRADS 2 - Benign Findings DENSITY: There are scattered areas of fibroglandular density. FOLLOW-UP: Routine Screening Mammogram ELECTRONICALLY SIGNED BY: Carlos Aviles M.D. Authorizing ProviderResult TypeResult StatusWillantoine Church DOIMG BI PROCEDURES Final Result from Last 3 Months or Most Recently Relevant to Health Maintenance [place] [phone] Care Teams Team MemberRelationshipSpecialtyStart DateEnd Date Selwyn Johnson MD [address] [place], [place] [address] [address] PCP - GeneralFamily Medicine02/16/24
--- NOTE | 2025-09-16 08:37 | XR_ITS ---
[facility] [place] [id number] Patient Name: IRMA AVINA MRN: [id number] date: 1950 Sex: F Assigned Patient Location: [facility] Current Patient Location: [facility] Accession/Order Number: [id number] Exam Date: 09/16/2025 08:48 Report Date: 09/16/2025 09:23 At the request of: DISHA KURTZ DPGeovany Procedure: XR foot RT min 3V CLINICAL DATA: Dorsal medial right foot pain and pain at the posterior ankle. No injury. RIGHT ANKLE - 3 views COMPARISON: None Weightbearing AP, lateral and oblique views were obtained. There is no acute fracture or dislocation. There is subtle subchondral lucency at the medial talar Dome there are no disruption of the overlying articular cortex. There are no significant soft tissue abnormalities. XR/XR foot RT min 3V IMPRESSION: NO ACUTE BONY FINDINGS. RIGHT FOOT - 3 views COMPARISON: None Standing AP, lateral and oblique views were obtained. There is no acute fracture or dislocation. Mild hallux valgus deformity is again visualized. There is increasing narrowing of the second metatarsal phalangeal joint space and hypertrophy. There is minor spurring at the first tarsometatarsal joint. There is a plantar calcaneal spur. No significant soft tissue abnormalities are noted. IMPRESSION: MILD HALLUX VALGUS DEFORMITY. DEGENERATIVE CHANGES, WORSENING AT THE SECOND METATARSAL PHALANGEAL JOINT. NO OTHER ACUTE BONY FINDINGS. Impression dictated by: Ella Vallecillo M.D. 09/16/2025 9:23 AM Dictation Location: [place] [address] Electronically authenticated by: [id number] Y Date: 09/16/2025 09:23
--- NOTE | 2025-09-16 08:37 | XR_ITS ---
[facility] [place] [id number] Patient Name: IRMA AVINA MRN: [id number] date: 1950 Sex: F Assigned Patient Location: [facility] Current Patient Location: [facility] Accession/Order Number: [id number] Exam Date: 09/16/2025 08:48 Report Date: 09/16/2025 09:23 At the request of: DISHA KURTZ DPGeovany Procedure: XR foot RT min 3V CLINICAL DATA: Dorsal medial right foot pain and pain at the posterior ankle. No injury. RIGHT ANKLE - 3 views COMPARISON: None Weightbearing AP, lateral and oblique views were obtained. There is no acute fracture or dislocation. There is subtle subchondral lucency at the medial talar Dome there are no disruption of the overlying articular cortex. There are no significant soft tissue abnormalities. XR/XR ankle RT min 3V IMPRESSION: NO ACUTE BONY FINDINGS. RIGHT FOOT - 3 views COMPARISON: None Standing AP, lateral and oblique views were obtained. There is no acute fracture or dislocation. Mild hallux valgus deformity is again visualized. There is increasing narrowing of the second metatarsal phalangeal joint space and hypertrophy. There is minor spurring at the first tarsometatarsal joint. There is a plantar calcaneal spur. No significant soft tissue abnormalities are noted. IMPRESSION: MILD HALLUX VALGUS DEFORMITY. DEGENERATIVE CHANGES, WORSENING AT THE SECOND METATARSAL PHALANGEAL JOINT. NO OTHER ACUTE BONY FINDINGS. Impression dictated by: Ella Vallecillo M.D. 09/16/2025 9:23 AM Dictation Location: [place] [address] Electronically authenticated by: [id number] Y Date: 09/16/2025 09:23
== END 2025-09-16 08:26 | disposition home or self-care (01) ==
LOC: RAD 08:30
PROVIDERS: PCP Family Medicine; Visit Provider Podiatrist Foot & Ankle Surgery
DX: M20.11 Hallux valgus (acquired), right foot (principal); M19.071 Primary osteoarthritis, right ankle and foot
CPT/HCPCS: 73610; 73630